=== PATIENT | female | born 1945 | race Caucasian/White ===

== ENCOUNTER 2021-10-24 13:16 | Outpatient (CLI) | payer MEDICARE, SELFPAY ==
--- NOTE | 2021-10-24 13:30 | CRLHL7_ITS ---
For Patients: As a result of the Century Cures Act, medical imaging exams and procedure reports are released immediately into your electronic medical record. You may view this report before your referring provider. If you have questions, please contact your health care provider. DXA BONE MINERAL DENSITY STUDY Current height (in): 65. Weight (lb): 164. Menopause age: 55. Ethnicity: White. 1. Have you had a previous hip or vertebral fracture? No. 2. Have you had any fractures during your adult life which did not result from significant trauma (e.g., auto accident)? No. 3. Did either of your parents have a hip fracture? No. 4. Do you smoke? No. 5. Have you ever taken Glucocorticoids? No. 6. Do you have rheumatoid arthritis? No. 7. Do you have secondary osteoporosis? No. 8. Do you drink 3 or more alcoholic drinks per day? No. 9. Are you being treated for osteoporosis? No. 10. Have you ever taken any of the following medications: Actonel, Evista, Fosamax, Miacalcin, Reclast, Boniva, Forteo, HRT (i.e. estrogen/hormone therapy), Protelos, Prolia, Vitamin D, Calcium, other ??? please specify. ANSWER: Yes, vitamin D and calcium. 11. Do you have any of the following medical conditions: Anorexia or bulimia, asthma or emphysema, end stage renal disease, hyperparathyroidism, any seizure disorders, cancer, inflammatory bowel diseases, hysterectomy, other ??? please specify. ANSWER: No. 12. What was your maximum height (inches)? 66. 13. Do you perform weight bearing exercise regularly? No. 14. Do you regularly consume dairy products? No. 15. Do you drink caffeinated beverages? No. If female: 16. At what age did your period start? 16. 17. Are you premenopausal? No. 18. How many full term pregnancies have you had? 2. 19. Have you ever missed your period for more than 6 months in a row (not including or menopause)? No. TECHNIQUE: Bone mineral density study was performed using the [employer]. FINDINGS: The results of the study expressed as bone mineral density (BMD) are as follows: Lumbar spine L1 to L2: BMD: 0.997 g/cm2. T-score: 0.2. Z-score: 2.4 Radius Right 33%: BMD: 0.648 g/cm2. T-score: -0.8. Z-score: 1.7 Left 33%: BMD: 0.644 g/cm2. T-score: -0.8. Z-score: 1.6 IMPRESSION: Normal bone density. *Comparison exams done prior to 07/2019 were performed on different unit, [employer]. COMPARISON: Compared with scan of 10/06/2019, the bone mineral density has decreased by 4.7 percent at the spine and increased by 1.8 percent at the left forearm. Brit Do M.D. Diagnostic/Breast Radiologist [email or web address] JOHN/[email or web address] may/Dictated by: Brit Do MD @ 10/25/2021 4:48:00 PM (Electronically Signed)
== END 2021-10-24 13:17 | disposition home or self-care (01) ==
LOC: RAD 13:17
PROVIDERS: PCP Physician Assistant Medical; Visit Provider Physician Assistant Medical
DX: M85.80 Other specified disorders of bone density and structure, unspecified site (principal)
CPT/HCPCS: 77080

== ENCOUNTER 2021-12-18 08:49 | Outpatient (CLI) | payer MEDICARE, SELFPAY ==
[2021-12-18 17:57] LABS: Albumin* 4.3 g/dL (3.3-5.0); Chloride* 105 mmol/L (96-114)
[2021-12-18 17:58] LABS: Potassium* 4.5 mmol/L (3.6-5.1); Sodium* 137 mmol/L (135-149)
[2021-12-18 17:59] LABS: Cholesterol* 126 mg/dL (90-199)
[2021-12-18 18:00] LABS: Alkaline Phosphatase* 73 U/L (40-150); Aspartate Amino Transferase* 22 U/L (12-35); Bilirubin Total* 0.7 mg/dL (0.1-1.5); Blood Urea Nitrogen* 12 mg/dL (7-30); Carbon Dioxide* 26 mmol/L (20-32); Creatinine* 0.6 mg/dL (0.5-1.5); Estimated Glomerular Filt Rate 94 ml/min; Glucose* 85 mg/dL (60-115); Total Protein* 6.7 g/dL (6.0-8.3)
[2021-12-18 18:01] LABS: Alanine Aminotransferase* 15 U/L (4-35); Calcium* 8.5 mg/dL (8.4-10.6); HDL Cholesterol* 57 mg/dL (>=50); LDL Cholesterol Calculated 56 mg/dL (<100); Triglycerides* 64 mg/dL (40-149)
== END 2021-12-18 08:50 | disposition home or self-care (01) ==
PROVIDERS: PCP Family Medicine; Visit Provider Family Medicine
DX: Z00.00 Encounter for general adult medical examination without abnormal findings (principal); E78.5 Hyperlipidemia, unspecified; K21.9 Gastro-esophageal reflux disease without esophagitis; Z13.1 Encounter for screening for diabetes mellitus
CPT/HCPCS: 80053; 80061

== ENCOUNTER 2021-12-28 12:58 | Outpatient (CLI) | payer MEDICARE, SELFPAY ==
--- NOTE | 2021-12-28 13:20 | CRLHL7_ITS ---
For Patients: As a result of the Century Cures Act, medical imaging exams and procedure reports are released immediately into your electronic medical record. You may view this report before your referring provider. If you have questions, please contact your health care provider. BILATERAL SCREENING MAMMOGRAM WITH COMPUTER-AIDED DETECTION AND TOMOSYNTHESIS TECHNIQUE: CC and MLO views were obtained. These mammographic images have been obtained using full-field digital technique. These mammographic images were interpreted with the benefit of computer-aided detection. Breast Tomosynthesis was used in this interpretation. COMPARISON FILM: 11/28/20, 11/08/19, 07/31/18. FINDINGS: There are scattered areas of fibroglandular density. IMPRESSION: There is no radiographic evidence for malignancy. ASSESSMENT: BI-RADS Category 1: Negative RECOMMENDATION: Routine screening mammogram in 1 year. A lay language report of this examination will be provided to the patient. Valerie Kirkland M.D. Diagnostic/Breast Radiologist [email or web address] RAMANAP/nabil PT/Dictated by: Valerie Kirkland MD @ 12/31/2021 8:54:00 AM (Electronically Signed)
== END 2021-12-28 12:59 | disposition home or self-care (01) ==
LOC: MAMMO 12:58
PROVIDERS: PCP Family Medicine; Visit Provider Family Medicine
DX: Z12.31 Encounter for screening mammogram for malignant neoplasm of breast (principal)
CPT/HCPCS: 77063; 77067

== ENCOUNTER 2022-06-26 09:38 | Outpatient (CLI) | payer MEDICARE, SELFPAY | END 2022-06-26 09:39 | disposition home or self-care (01) | LOC: NFLDREF 06-27 11:18 | PROVIDERS: PCP Family Medicine; Referring Provider Family Medicine; Visit Provider Family Medicine | DX: N39.46 Mixed incontinence (principal); R30.9 Painful micturition, unspecified | CPT/HCPCS: 87086; 87186 ==

== ENCOUNTER 2022-09-11 09:00 | Outpatient (RCR) | payer MEDICARE, SELFPAY ==
--- NOTE | 2022-08-21 16:15 | PT.OPEX ---
PT [place] [facility] Eval PT [facility] Outpatient Eval Start: 08/20/22 15:05 Freq: Status: Active Protocol: Document 08/21/22 09:29 SIERRA (Rec: 08/21/22 09:35 SIERRA [id number]) E-signed By Danay Pride PT Physical Therapy Outpatient Evaluation Insurance Information Recert Due Date 11/19/22 Insurance Name Medicare B,Blue [employer] Medical Diagnosis Mixed UI Treating Diagnosis urinary incontinence lack of coordination (muscle) Referring MD Dr. Cho Subjective Subjective Yenni presents with diagnosis of urinary incontinence. Pt reports she has had UI symptoms since 2009 . Symptoms started more mildly but have worsened over time. Back in August 2014, pt had a severe UTI that resulted in lower abdominal/pelvic pain and brown colored urine. Was treated with antibiotics. Then 1 month later, had return of symptoms was diagnosed and treated for UTI. Did well until about 2020 in which she had another confirmed UTI. Pt denies any issues since 2020 but around this time started to have more frequent urine leakage- during day and night. Had to switch to larger pads and she would soak them. Approx 2 months ago, pt did a home UTI test which was positive. Was evaluated and treated for a UTI. Was placed on Cephalexin and has noticed a big change in her symptoms. Pt reports her UI symptoms are minimal. Her leaking usually only occurs with coughing. Since starting the antibiotic, pt has only soaked her pad 1 time . Goal for therapy include learning how to better control her bladder. Date of Last Physician Visit 06/26/22 Current Work Status Retired Preferred Name Talia Precautions Treatment Precautions/Contraindications B DENICE sleep apnea GERD Assessment Assessment/Impression 76 yo client presents with c/o urinary incontinence. Her symptoms have improved drastically following her diagnosis and treatment for a UTI. Pt overall lives a healthy lifestyle. Daily exercise. Does drink good amounts of fluid with good nutrition. Urinary frequency is depending on her activity. Will urinate every 1-6 hours. Leaking only occurs with coughing now. Pt is a chronic cougher due to her sleep apnea and allergies/dryness. No issues with feeling of urinary retention, post void dribbling, or weak stream. Her bowel function is good. Defecates daily with min to no need to push. No symptoms of pelvic pressure or POP. Pt is not currently sexual active and is content with this at this time. Did work with pt on proper Kegels to try to facilitate coordination of PFM . Pt did struggle. Did not have time to complete assessment of her PFM status today. Will complete at her next session or as able. Pt is appropriate for skilled PT services to help reduce her urinary issues/PFD with use of therapeutic exercise, therapeutic activities, neuromuscular re-ed, manual therapy, and self cares. Plan of Care Rehabilitation Potential Good Physical Therapy Goals Short term goals to be achieved in 4 weeks 1. Able to report voiding intervals of 1X every 2-4 hours, 60% of the time. 2. Pt will demonstrate use of functional PFM contraction by performing a precontraction to eliminate/reduce UI during coughing 3. Will demonstrate an increase in PFM endurance to 8 sec holds X 10 reps for ability to improve PFM coordination to help reduce UI symptoms FPC goals to be achieved in 12 weeks. 1. Independent with self-care program to allow for reduction in her UI symptoms 2. Will report an 80% reduction in her UI symptoms as seen with ability to stay dry 5 out of 7 days. 3. Pt will be able to demonstrate ability to perform 10 quick contractions, with exhales, for further improving PFM coordination to aid in reducing UI symptoms with coughing and other functional activities. Coordination/Communication With Referral Source Treatment Plan/Direct Interventions Joint Mobilization,Manual Therapy,Neuromuscular Re-ed, Self-Care/Home Management, Therapeutic Activities, Therapeutic Exercises Frequency/Duration 1 time a week for up to 8 visits Patient Will Be Discharged From Therapy Completion of LTG(s),Skills Plateau,Independent w/HEP, Independently Progressing Evaluation Billing Untimed Code Treatment Minutes 35 Complexity Moderate Certification Information Initial Certification Date 08/21/22 Ending Certification Date 11/19/22 Provider Signature Shows Agreement With POC & Medical Necessity Physician Signature & Date Requested Please Sign/Date Here Physician Comment/Change : Physician NPI Number #
== END 2023-01-09 23:59 | disposition home or self-care (01) ==
PROVIDERS: PCP Family Medicine; Visit Provider Family Medicine
DX: N39.46 Mixed incontinence (principal); R27.8 Other lack of coordination; Z51.89 Encounter for other specified aftercare
CPT/HCPCS: 97110; 97162; 97535

== ENCOUNTER 2022-12-30 07:36 | Outpatient (CLI) | payer MEDICARE, SELFPAY | END 2022-12-30 07:37 | disposition home or self-care (01) | LOC: NFLDREF 01-01 07:15 | PROVIDERS: PCP Family Medicine; Referring Provider Family Medicine; Visit Provider Family Medicine | DX: Z00.00 Encounter for general adult medical examination without abnormal findings (principal); E78.5 Hyperlipidemia, unspecified | CPT/HCPCS: 80053; 80061 ==

== ENCOUNTER 2023-01-17 09:00 | Outpatient (CLI) | payer MEDICARE, SELFPAY ==
--- NOTE | 2023-01-17 09:15 | CRLHL7_ITS ---
For Patients: As a result of the Cures Act, medical imaging exams and procedure reports are released immediately into your electronic medical record. You may view this report before your referring provider. If you have questions, please contact your health care provider. BILATERAL SCREENING MAMMOGRAM WITH COMPUTER-AIDED DETECTION AND TOMOSYNTHESIS TECHNIQUE: CC and MLO views were obtained. These mammographic images have been obtained using full-field digital technique. These mammographic images were interpreted with the benefit of computer-aided detection. Breast Tomosynthesis was used in this interpretation. COMPARISON FILM: 12/28/21, 11/28/20, 11/08/19. FINDINGS: There are scattered areas of fibroglandular density IMPRESSION: There is no radiographic evidence for malignancy. ASSESSMENT: BI-RADS Category 2: Benign RECOMMENDATION: Routine screening mammogram in 1 year. A lay language report of this examination will be provided to the patient. Tim aPtel M.D. Diagnostic Radiologist [email or web address] MARIEL/jeff / be/Dictated by: Tim Patel MD @ 01/17/2023 10:28:00 AM (Electronically Signed)
== END 2023-01-17 09:01 | disposition home or self-care (01) ==
LOC: MAMMO 09:01
PROVIDERS: PCP Family Medicine; Visit Provider Family Medicine
DX: Z12.31 Encounter for screening mammogram for malignant neoplasm of breast (principal)
CPT/HCPCS: 77063; 77067

== ENCOUNTER 2023-09-21 09:36 | Outpatient (CLI) | payer MEDICARE, SELFPAY | END 2023-09-21 09:37 | disposition home or self-care (01) | LOC: NFLDREF 09-22 11:38 | PROVIDERS: PCP Family Medicine; Referring Provider Family Medicine; Visit Provider Family Medicine | DX: N39.0 Urinary tract infection, site not specified (principal); N30.01 Acute cystitis with hematuria | CPT/HCPCS: 87086; 87186 ==

== ENCOUNTER 2024-01-06 07:11 | Outpatient (CLI) | payer MEDICARE, SELFPAY | END 2024-01-06 07:12 | disposition home or self-care (01) | PROVIDERS: PCP Family Medicine; Visit Provider Family Medicine | DX: Z00.00 Encounter for general adult medical examination without abnormal findings (principal); E78.5 Hyperlipidemia, unspecified; M85.80 Other specified disorders of bone density and structure, unspecified site; Z11.59 Encounter for screening for other viral diseases | CPT/HCPCS: 80053; 82306; 86803 ==

== ENCOUNTER 2024-01-26 13:11 | Outpatient (CLI) | payer MEDICARE, SELFPAY ==
--- NOTE | 2024-01-26 13:30 | CRLHL7_ITS ---
For Patients: As a result of the Century Cures Act, medical imaging exams and procedure reports are released immediately into your electronic medical record. You may view this report before your referring provider. If you have questions, please contact your health care provider. DXA BONE MINERAL DENSITY STUDY Reason for exam: Other specified disorders of bone density and structure, unspecified site. Current height (in): 65. Weight (lb): 140. Menopause age: 55. Ethnicity: White. 1. Have you had a previous hip or vertebral fracture? No. 2. Have you had any fractures during your adult life which did not result from significant trauma (e.g., auto accident)? No. 3. Did either of your parents have a hip fracture? No. 4. Do you smoke? No. 5. Have you ever taken Glucocorticoids? No. 6. Do you have rheumatoid arthritis? No. 7. Do you have secondary osteoporosis? No. 8. Do you drink 3 or more alcoholic drinks per day? No. 9. Are you being treated for osteoporosis? No. 10. Have you ever taken any of the following medications: Actonel, Evista, Fosamax, Miacalcin, Reclast, Boniva, Forteo, HRT (i.e., estrogen/hormone therapy), Protelos, Prolia, Vitamin D, Calcium, other ??? please specify. ANSWER: Yes, vitamin D, HRT (i.e., estrogen/hormone therapy), and calcium. 11. Do you have any of the following medical conditions: Anorexia or bulimia, asthma or emphysema, end stage renal disease, hyperparathyroidism, any seizure disorders, cancer, inflammatory bowel diseases, hysterectomy, other ??? please specify. ANSWER: No. 12. What was your maximum height (inches)? 66. 13. Do you perform weight bearing exercise regularly? No. 14. Do you regularly consume dairy products? No. 15. Do you drink caffeinated beverages? No. 16. At what age did your period start? 16. 17. Are you premenopausal? No. 18. How many full-term pregnancies have you had? 2. 19. Have you ever missed your period for more than 6 months in a row (not including or menopause)? No. TECHNIQUE: Bone mineral density study was performed using the [employer]. FINDINGS: The results of the study expressed as bone mineral density (BMD) are as follows: Lumbar spine L1 to L2: BMD: 0.968 g/cm2. T-score: -0.1. Z-score: 2.2 Radius Right 33%: BMD: 0.632 g/cm2. T-score: -1.0. Z-score: 1.6 Left 33%: BMD: 0.632 g/cm2. T-score: -1.0. Z-score: 1.7 IMPRESSION: Normal bone density. *Comparison exams done prior to 07/2019 were performed on different unit, [employer]. COMPARISON: Compared with scan of 10/06/2019, the bone mineral density has decreased by 2.9 percent at the spine and decreased by 0.1 percent at the left forearm. Compared with scan of 09/15/2017, the bone mineral density has decreased by 4.7 percent at the spine. Tim Patel M.D. Diagnostic Radiologist [email or web address] MARIEL/[email or web address] Transcribed: 12:45 p.[email or web address] may/Dictated by: Tim Patel MD @ 01/28/2024 8:21:00 AM (Electronically Signed)
--- NOTE | 2024-01-26 14:00 | CRLHL7_ITS ---
For Patients: As a result of the Century Cures Act, medical imaging exams and procedure reports are released immediately into your electronic medical record. You may view this report before your referring provider. If you have questions, please contact your health care provider. BILATERAL SCREENING MAMMOGRAM WITH COMPUTER-AIDED DETECTION AND TOMOSYNTHESIS TECHNIQUE: CC and MLO views were obtained. These mammographic images have been obtained using full-field digital technique. These mammographic images were interpreted with the benefit of computer-aided detection. Breast tomosynthesis was used in this interpretation. COMPARISON FILM: 01/17/23, 12/28/21, 11/28/20. FINDINGS: There are scattered areas of fibroglandular density. IMPRESSION: There is no radiographic evidence for malignancy. ASSESSMENT: BI-RADS Category 1: Negative RECOMMENDATION: Routine screening mammogram in 1 year. A lay language report of this examination will be provided to the patient. Tim Patel M.D. Diagnostic Radiologist [email or web address] SP/Dictated by: Tim Patel MD @ 01/28/2024 11:12:00 AM (Electronically Signed)
== END 2024-01-26 13:12 | disposition home or self-care (01) ==
PROVIDERS: PCP Family Medicine; Referring Provider Family Medicine; Visit Provider Family Medicine
DX: Z12.31 Encounter for screening mammogram for malignant neoplasm of breast (principal); M85.80 Other specified disorders of bone density and structure, unspecified site
CPT/HCPCS: 77063; 77067; 77080

== ENCOUNTER 2025-01-06 07:30 | Outpatient (CLI) | payer MEDICARE, SELFPAY | END 2025-01-06 07:31 | disposition home or self-care (01) | LOC: NFLDREF 01-11 20:52 | PROVIDERS: PCP Family Medicine; Referring Provider Family Medicine; Visit Provider Family Medicine | DX: E78.2 Mixed hyperlipidemia (principal) | CPT/HCPCS: 80053; 80061 ==

== ENCOUNTER 2025-02-15 14:41 | Outpatient (CLI) | payer MEDICARE, SELFPAY ==
--- NOTE | 2025-02-15 15:00 | CRLHL7_ITS ---
For Patients: As a result of the Century Cures Act, medical imaging exams and procedure reports are released immediately into your electronic medical record. You may view this report before your referring provider. If you have questions, please contact your health care provider. INDICATION: BILATERAL SCREENING MAMMOGRAM, ASYMPTOMATIC 79 Y/O FEMALE COMPARISON: 01/26/2024, 01/17/2023, 12/28/2021 TECHNIQUE: Digital mammogram in CC and MLO projections including computer-aided detection (CAD) and tomosynthesis. BREAST COMPOSITION: There are scattered areas of fibroglandular density. FINDINGS: No suspicious findings. ASSESSMENT: BI-RADS 1 Negative RECOMMENDATION: Annual screening mammogram. A lay language report of this examination will be provided to the patient. Dictated by: Edita Bhatt MD @ 02/17/2025 07:31:19 (Electronically Signed)
== END 2025-02-15 14:42 | disposition home or self-care (01) ==
LOC: MAMMO 14:41
PROVIDERS: PCP Family Medicine; Visit Provider Family Medicine
DX: Z12.31 Encounter for screening mammogram for malignant neoplasm of breast (principal)
CPT/HCPCS: 77063; 77067